=== PATIENT | male | born 1960 | race Caucasian/White ===

== ENCOUNTER 2018-09-16 12:55 | Emergency (ER) | payer MEDICARE, BC, SELFPAY ==
[2018-09-16] VITALS (16 sets, daily range): BP systolic 129–152; BP diastolic 73–97; PULSE 74–80; RESP 10–20; TEMP 36.4; O2SAT 95–97
--- NOTE | 2018-09-16 13:02 | ED.GENADUL_ITS ---
Discharge Plan Disposition Patient Disposition: HOME Condition: Stable Discharge Details Chief Complaint: Chest Pain Clinical Impression: Chronic back pain Reason For Visit: DENNIS Primary Care Provider: None,None ED Provider: Lalo Montoya Home Meds and New Rx's Prescriptions: Continued gabapentin 400 mg Capsule 1,200 mg PO TID RF: 0 clonazepam 1 mg Tablet 1 mg PO HS RF: 0 atenolol 25 mg Tablet 25 mg PO DAILY RF: 0 tramadol 50 mg Tablet 50 mg PO TID RF: 0 acetaminophen 650 mg Tablet Extended Release 1,300 mg PO BID RF: 0 calcium carbonate 600 mg calcium (1,500 mg) Tablet 1 tab PO DAILY RF: 0 methocarbamol 750 mg Tablet 750 mg PO BID RF: 0 ascorbic acid (vitamin C) 500 mg Tablet 500 mg PO DAILY RF: 0 methotrexate sodium 2.5 mg Tablet 15 mg PO DIRECTED RF: 0 trazodone 100 mg Tablet 200 mg PO HS RF: 0 diphenhydramine HCl 25 mg Tablet 50 mg PO PRN PRNRF: 0 docusate sodium 100 mg Capsule 100 mg PO PRN PRNRF: 0 omeprazole 20 mg Capsule,Delayed Release(Dr/Ec) 20 mg PO DAILY RF: 0 vitamin B complex Tablet 1 tab PO DAILY RF: 0 folic acid 1 mg Tablet 1 mg PO DAILY RF: 0 hydroxychloroquine 200 mg Tablet 200 mg PO DAILY RF: 0 multivitamin Capsule 1 tab PO DAILY RF: 0 naproxen 500 mg Tablet 500 mg PO BID RF: 0 cranberry extract [Cranberry Concentrate] 500 mg Capsule RF: 0 cholecalciferol (vitamin D3) 1,000 unit Tablet 1 tab PO DAILY RF: 0 mirabegron 50 mg Tablet Extended Release 24 Hr 50 mg PO DAILY RF: 0 Medical Marijuana PO DAILY RF: 0 Discharge Instructions Instructions: Chronic Back Pain (ED) Additional Instructions: i have placed you on our follow up list to try and get a primary care provider in this area if you have fevers, inability to urinate or new symptoms such as abdominal pain return to the emergency department Stand Alone Forms: Physical Therapy Referral Medical Decision Making 58 yo male on my exam states his chief complaint is lower back pain that he has had for over a year. He is very resistant to give details on his history as he states he doesn't like his old pcp and thinks the records from his office would not tell an accurate description of him. The patient is caox4 with normal speech, no si/hi. States low back pain for over a year and fell from standing a few days ago. He did not have loc. He has pain throughout the lumbar region, no redness or warmth, no saddle anesthesia and intact motor and sensation of the lower extremities. Suspect contusion but will xray to eval for possible fx. He has no findings to suggest cauda equina. He did state to nursing he had chest pain two weeks ago but denies this on my exam. His ekg is nsr, heart score is 2, will send troponin. Has no findings to suggest dvt, no tachcyardia or hypoxia to suggest PE. No tearing back pain and normal vascular exam so doubt dissection pt remains stable, xrays negative on my read. He has no pcp in this area and would like to have pt referral for leg strengthening per pt which he has had in the past which I will provide. I am also going to try and expediate a pcp appt for him for his chronic back pain and other medical problems. HE was advised to return if anything sooner Differential Diagnosis contusion, fracture, strain, chronic low back pain Lab Data Lab results reviewed: Yes I reviewed the patient's lab results. ECG Data Attestation: I personally reviewed and interpreted this ECG (s) as follows: Prior ECG tracings: not available for review Interpretation: sinus rhythm, rate of 77, pr 154, qtc of 364, no ischemic st t wave findings HPI General Mode of arrival: EMS . Date/Time Provider Initiated Documentation: 09/16/18 13:02 . Limitations to Documentation: no limitations . Information obtained by: patient . History of Present Illness 58 year old M presents to the emergency department with the chief complaint of low back pain, described as moderate, Quality is described as aching, and is localized to the back. Patient reports no radiation. Patient started experiencing this year(s) (1) and it has been constant. No relieving factors improve s ymptom(s), No exacerbating factors reported . Patient notes no other symptoms.. Patient did receive the following treatments prior to arrival, none Related Data Home Medications Medication Instructions Recorded Confirmed Medical Marijuana PO DAILY 09/16/18 acetaminophen 1,300 mg PO BID 09/16/18 09/16/18 ascorbic acid (vitamin C) 500 mg PO DAILY 09/16/18 09/16/18 atenolol 25 mg PO DAILY 09/16/18 09/16/18 calcium carbonate 1 tab PO DAILY 09/16/18 09/16/18 cholecalciferol (vitamin D3) 1 tab PO DAILY 09/16/18 09/16/18 clonazepam 1 mg PO HS 09/16/18 09/16/18 cranberry extract [Cranberry 09/16/18 Concentrate] diphenhydramine HCl 50 mg PO PRN PRN 09/16/18 09/16/18 docusate sodium 100 mg PO PRN PRN 09/16/18 09/16/18 folic acid 1 mg PO DAILY 09/16/18 09/16/18 gabapentin 1,200 mg PO TID 09/16/18 09/16/18 hydroxychloroquine 200 mg PO DAILY 09/16/18 09/16/18 methocarbamol 750 mg PO BID 09/16/18 09/16/18 methotrexate sodium 15 mg PO DIRECTED 09/16/18 09/16/18 mirabegron 50 mg PO DAILY 09/16/18 09/16/18 multivitamin 1 tab PO DAILY 09/16/18 09/16/18 naproxen 500 mg PO BID 09/16/18 09/16/18 omeprazole 20 mg PO DAILY 09/16/18 09/16/18 tramadol 50 mg PO TID 09/16/18 09/16/18 trazodone 200 mg PO HS 09/16/18 09/16/18 vitamin B complex 1 tab PO DAILY 09/16/18 09/16/18 Allergies Allergy/AdvReac Type Severity Reaction Status Date / Time No Known Allergies Allergy Unverified 09/16/18 13:08 Review of Systems Review of Systems All systems reviewed & are unremarkable except as noted in HPI and below Constitutional Denies chills, Denies fever(s) and Denies weakness Cardiovascular Denies dyspnea Respiratory Denies dyspnea Gastrointestinal Denies abdominal pain, Denies nausea and Denies vomiting Musculoskeletal Denies joint swelling Neurologic Denies weakness Endocrine Denies cold intolerance and Denies heat intolerance Allergic/Immunologic Denies urticaria PFSH Social History Smoking/Tobacco Use Status: Never Exam Const General: no acute distress Orientation: alert HENMT Head: normal to inspection Ears: external ears normal General nose exam: external nose normal Mouth: moist mucous membranes Eyes General: appearance normal, both eyes and all related structures Neck Neck: normal visual inspection Resp Effort & Inspection: normal respiratory effort and able to speak in complete sentences Cardio Rate: regular rate Back/Spine/Pelvis Back: no CVA tenderness Skin General skin exam: no rashes or lesions noted Neuro General: alert and oriented x3 Extrem General: normal to inspection Psych Mental Status: mental status grossly normal
[2018-09-16 13:24] LABS: Abs Immature Grans 0.01 k/cumm (0.0-0.09); Absolute Basophil Count 0.07 k/cumm (0.0-0.2); Absolute Lymphocyte Count 1.16 k/cumm (1.2-3.4); Absolute Monocyte Count 0.51 k/cumm (0.11-0.7); Absolute Neutrophil Count 4.82 k/cumm (1.2-6.7); Eosinophils % 1.5; HCT 42.3 % (40.0-50.0); HGB 14.7 g/dL (13.5-17.5); Immature Grans % 0.1; Lymphocytes % 17.4; Mean Corp. HGB Concentration 34.8 g/dL (32.0-36.0); Mean Corpuscular Hemoglobin 30.2 pg (27.0-33.0); Mean Corpuscular Volume 86.9 fL (80-95); Mean Platelet Volume 9.2 fL (8.0-11.0); Monocytes % 7.6; Neutrophils % 72.4; Platelet Count 250 x1000/uL (130-400); RBC 4.87 m/cumm (4.50-6.00); RBC Distribution Width 13.7 % (11.8-14.1); White Blood Cell Count 6.67 k/cumm (4.4-10.8)
--- NOTE | 2018-09-16 13:25 | DI.RAD_ITS ---
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 There is an extensive posterior fusion and pedicle screw and rods are noted in place extending from T12 through L3-4. A disc prosthesis is identified at L4-5. There is a narrowed vacuum disc at L5-S1. There is nothing on the present examination to suggest a superimposed acute fracture. Evaluation of the SI joints reveals DJD. No sacral fracture is apparent. An electronic stimulator is positioned over the left posterior sacral region. Incidentally, the patient is apparently status post vasectomy.
[2018-09-16 13:42] LABS: ALT 36 U/L (12-78); AST 37 U/L (15-37); Albumin 3.7 g/dL (3.4-5.0); Alkaline Phosphatase 48 U/L (46-116); Anion Gap 7.3 mmol/L (3-11); BUN 25 mg/dL (7-18); Bilirubin, Total 0.8 mg/dL (0.2-1.0); CO2 30.7 mmol/L (21.0-32.0); CREATININE 0.84 mg/dL (0.70-1.30); Calcium 8.7 mg/dL (8.5-10.1); Chloride 104 mmol/L (98-107); Glucose 126 mg/dL (70-100); NT-proBNP 74 pg/mL; Potassium 3.9 mmol/L (3.5-5.1); Sodium 142 mmol/L (136-145); Total Protein 6.9 g/dL (6.4-8.2)
[2018-09-16 13:45] LABS: Troponin I < 0.02 ng/mL (0.00-0.06)
[2018-09-16] MEDS: Acetaminophen 500 MG TAB 1000 MG PO (13:45)
[2018-09-16 13:59] LABS: INR 1.1 (1.0-3.5); PTT Activated 22.5 sec (21.0-31.4); Prothrombin Time 10.7 sec (9.3-11.0)
--- NOTE | 2018-09-17 10:08 | PDOC.ERCMPRO ---
Care Management Progress Note CM paged by ED for transportation support. CM called Demi at [facility] regarding transport for Sb and his , Erma. CM provided Demographic information and faxed prior-auth for payment direct to [facility] due to Sb being under the age of [age] and having Medicare and BC/BS; no insurance coverage for transport. [facility] responded with transportation information which was directly relayed to Melvina; Career Representative in the ED.
--- NOTE | 2018-09-17 10:10 | CMPROGNOTE_ITS ---
Care Management Progress Note CM paged by ED for transportation support. CM called Demi at [facility] regarding transport for Sb and his , Erma. CM provided Demographic information and faxed prior-auth for payment direct to [facility] due to Sb being under the age of [age] and having Medicare and BC/BS; no insurance coverage for transport. [facility] responded with transportation information which was directly relayed to Melvina; Teradata Architect in the ED.
== END 2018-09-16 17:15 | disposition home or self-care (01) ==
PROVIDERS: Emergency Provider Emergency Medicine; PCP Family Medicine
DX: M54.5 Low back pain (principal)
CPT/HCPCS: 36415; 80053; 93005; 99284; 99285; 72110; 83880; 84484; 85025; 85610; 85730; 93010; 99282

== ENCOUNTER 2018-09-17 13:54 | Emergency (ER) | payer MEDICARE, BC, SELFPAY ==
[2018-09-17 14:00] VITALS: BP 155/98; PULSE 91; RESP 16; TEMP 36.8; O2SAT 96
--- NOTE | 2018-09-17 14:08 | DI.RAD_ITS ---
SYMPTOMS/DIAGNOSIS: PAIN S/P FALL RIGHT HIP: Two views are provided. There is joint space narrowing, and articular sclerosis and mild periarticular hypertrophic spurring, the findings consistent with moderate DJD. There is no evidence of a hip or pelvic fracture.
[2018-09-17] MEDS: Acetaminophen 500 MG TAB 1000 MG PO (14:15)
--- NOTE | 2018-09-17 14:15 | ED.GENADUL_ITS ---
Discharge Plan Disposition Patient Disposition: HOME Condition: Stable Discharge Details Chief Complaint: Orthopedic Clinical Impression: Contusion of right hip Reason For Visit: DENNIS Primary Care Provider: Johnathon Clinton ED Provider: Lalo Montoya Home Meds and New Rx's Prescriptions: No Action gabapentin 400 mg Capsule 1,200 mg PO TID RF: 0 clonazepam 1 mg Tablet 1 mg PO HS RF: 0 atenolol 25 mg Tablet 25 mg PO DAILY RF: 0 tramadol 50 mg Tablet 50 mg PO TID RF: 0 acetaminophen 650 mg Tablet Extended Release 1,300 mg PO BID RF: 0 calcium carbonate 600 mg calcium (1,500 mg) Tablet 1 tab PO DAILY RF: 0 methocarbamol 750 mg Tablet 750 mg PO BID RF: 0 ascorbic acid (vitamin C) 500 mg Tablet 500 mg PO DAILY RF: 0 methotrexate sodium 2.5 mg Tablet 15 mg PO DIRECTED RF: 0 trazodone 100 mg Tablet 200 mg PO HS RF: 0 diphenhydramine HCl 25 mg Tablet 50 mg PO PRN PRNRF: 0 docusate sodium 100 mg Capsule 100 mg PO PRN PRNRF: 0 omeprazole 20 mg Capsule,Delayed Release(Dr/Ec) 20 mg PO DAILY RF: 0 vitamin B complex Tablet 1 tab PO DAILY RF: 0 folic acid 1 mg Tablet 1 mg PO DAILY RF: 0 hydroxychloroquine 200 mg Tablet 200 mg PO DAILY RF: 0 multivitamin Capsule 1 tab PO DAILY RF: 0 naproxen 500 mg Tablet 500 mg PO BID RF: 0 cranberry extract [Cranberry Concentrate] 500 mg Capsule RF: 0 cholecalciferol (vitamin D3) 1,000 unit Tablet 1 tab PO DAILY RF: 0 mirabegron 50 mg Tablet Extended Release 24 Hr 50 mg PO DAILY RF: 0 Medical Marijuana PO DAILY RF: 0 Discharge Instructions Instructions: Contusion in Adults (ED) Medical Decision Making 58 yo male comes in with right hip pain. States he had mechanical fall from standing 3 days ago and landed on right hip, no loc or head trauma. Has chronic back pain for which he was seen yesteerday with negative xrays, comes in today with now right hip pain. Has been walking with his walker and has full rom of the hip with pain, nofevers, redness erythema. Suspect contusion, will xray to eval for fx. Has no findings to suggest septic joint. He is living in a hotel as he is trying to settle in the area and has no services here, will have care management meet with him xray appears negative on my read, care management met with patient is helping pt get set up with community connections and pcp Differential Diagnosis contusion, sprain, strain Imaging Data Radiologic Study: Attestation: I personally reviewed and interpreted this imaging study as follows: Imaging: X-Ray Radiologist's impression: right hip contusion HPI General Mode of arrival: EMS . Date/Time Provider Initiated Documentation: 09/17/18 14:01 . Limitations to Documentation: no limitations . Information obtained by: patient . History of Present Illness 58 year old M presents to the emergency department with the chief complaint of right hip pain, described as moderate, with intensity rated at 5. Quality is described as aching, and is localized to the right and lower extremity. Patient reports no radiation. Patient started experiencing this day(s) (3) and it has been constant. No relieving factors improve symptom(s), No exacerbating factors reported . Patient notes no other symptoms.. Patient did receive the following treatments prior to arrival, none Related Data Home Medications Medication Instructions Recorded Confirmed Medical Marijuana PO DAILY 09/16/18 acetaminophen 1,300 mg PO BID 09/16/18 09/17/18 ascorbic acid (vitamin C) 500 mg PO DAILY 09/16/18 09/17/18 atenolol 25 mg PO DAILY 09/16/18 09/17/18 calcium carbonate 1 tab PO DAILY 09/16/18 09/17/18 cholecalciferol (vitamin D3) 1 tab PO DAILY 09/16/18 09/17/18 clonazepam 1 mg PO HS 09/16/18 09/17/18 cranberry extract [Cranberry 09/16/18 Concentrate] diphenhydramine HCl 50 mg PO PRN PRN 09/16/18 09/17/18 docusate sodium 100 mg PO PRN PRN 09/16/18 09/17/18 folic acid 1 mg PO DAILY 09/16/18 09/17/18 gabapentin 1,200 mg PO TID 09/16/18 09/17/18 hydroxychloroquine 200 mg PO DAILY 09/16/18 09/17/18 methocarbamol 750 mg PO BID 09/16/18 09/17/18 methotrexate sodium 15 mg PO DIRECTED 09/16/18 09/17/18 mirabegron 50 mg PO DAILY 09/16/18 09/17/18 multivitamin 1 tab PO DAILY 09/16/18 09/17/18 naproxen 500 mg PO BID 09/16/18 09/17/18 omeprazole 20 mg PO DAILY 09/16/18 09/17/18 tramadol 50 mg PO TID 09/16/18 09/17/18 trazodone 200 mg PO HS 09/16/18 09/17/18 vitamin B complex 1 tab PO DAILY 09/16/18 09/17/18 Allergies Allergy/AdvReac Type Severity Reaction Status Date / Time No Known Allergies Allergy Unverified 09/16/18 13:08 General Stated Complaint: Orthopedic KIMBERLI: 4 Review of Systems Review of Systems All systems reviewed & are unremarkable except as noted in HPI and below Constitutional Denies chills, Denies fever(s) and Denies weakness Eyes Denies loss of vision ENT Denies change in voice Cardiovascular Denies chest pain and Denies dyspnea Respiratory Denies dyspnea Gastrointestinal Denies abdominal pain, Denies nausea and Denies vomiting Genitourinary Denies dysuria Musculoskeletal Denies joint swelling Integumentary/Breasts Denies rash Neurologic Denies loss of vision and Denies weakness Psychiatric Denies depression Endocrine Denies cold intolerance and Denies heat intolerance Allergic/Immunologic Denies urticaria PFSH Social History Smoking/Tobacco Use Status: Never Exam Const General: no acute distress Orientation: alert HENMT Head: normal to inspection Ears: external ears normal General nose exam: external nose normal Mouth: moist mucous membranes Eyes General: appearance normal, both eyes and all related structures Neck Neck: normal visual inspection Resp Effort & Inspection: normal respiratory effort and able to speak in complete sentences Cardio Rate: regular rate Skin General skin exam: no rashes or lesions noted Neuro General: alert and oriented x3 Extrem General: normal to inspection Psych Mental Status: mental status grossly normal Course Vital Signs Temperature 36.8 C 09/17/18 14:00 Pulse 91 H 09/17/18 14:00 Respiratory Rate 16 09/17/18 14:00 Blood Pressure 155/98 H 09/17/18 14:00 Pulse Oximetry 96 09/17/18 14:00 Temperature 36.8 C 09/17/18 14:00 Temperature Source Skin 09/17/18 14:00 Pulse 91 H 09/17/18 14:00 Respiratory Rate 16 09/17/18 14:00 Respiratory Effort Non-Labored 09/17/18 14:00 Blood Pressure 155/98 H 09/17/18 14:00 Blood Pressure Position Supine 09/17/18 14:00 Pulse Oximetry 96 09/17/18 14:00 Oxygen Delivery Method Room Air 09/17/18 14:00 Oxygen Flow Rate 0 09/17/18 14:00 Pain Level 8 09/17/18 14:00
--- NOTE | 2018-09-18 18:20 | NUR.NOTE ---
Nursing Note: Patient called stating that he was expecting a medi por with his bubble packs from the pharmacy. He stated that he used to get it with his bubble packs of medications. I asked if he had enough medications for the holiday and he stated yes. He still wanted more help and so I put the call to Coleen Perlata, brand development manager phone to leave a message for her to follow up with tomorrow. Sloane Navarrete.
== END 2018-09-17 15:29 | disposition home or self-care (01) ==
PROVIDERS: Emergency Provider Emergency Medicine; PCP Family Medicine
DX: S70.01XA Contusion of right hip, initial encounter (principal); W01.0XXA Fall on same level from slipping, tripping and stumbling without subsequent striking against object, initial encounter
CPT/HCPCS: 99283; 73502; 99282

== ENCOUNTER 2018-11-11 13:37 | Outpatient (REF) | payer MEDICARE, BC, SELFPAY ==
[2018-11-11 16:20] LABS: Bilirubin Negative (Negative); Blood Negative (Negative); Clarity Cloudy; Glucose Negative (Negative); Ketones Negative (Negative); Leukocyte Esterase Negative (Negative); Nitrite Negative (Negative); Specific Gravity 1.025 (1.005-1.025); Urobilinogen 0.2 EU/dL (Up TO 0.2); pH 8.5 (5-8)
[2018-11-11 16:37] LABS: C & S Indicated? Yes; Crystals Many Amorphous HPF (Negative)
== END 2018-11-11 13:57 ==
LOC: LBN 13:37
PROVIDERS: PCP Student in an Organized Health Care Education/Training Program; Visit Provider Urology
DX: R30.0 Dysuria (principal)
CPT/HCPCS: 81003; 81015; 87086

== ENCOUNTER → 2018-12-08 14:21 | Outpatient (BNVA) | payer MEDICARE, BC, SELFPAY | PROVIDERS: PCP Student in an Organized Health Care Education/Training Program; Visit Provider Nurse Practitioner Gerontology | DX: N32.81 Overactive bladder (principal); I10 Essential (primary) hypertension | CPT/HCPCS: 51798; 81003; 99205; 99215 ==

== ENCOUNTER → 2019-01-27 14:43 | Outpatient (BNVA) | payer MEDICARE, BC, SELFPAY | PROVIDERS: PCP Family Medicine; Referring Provider Student in an Organized Health Care Education/Training Program; Visit Provider Nurse Practitioner Gerontology | DX: N39.41 Urge incontinence (principal); N39.43 Post-void dribbling | CPT/HCPCS: 99215 ==

== ENCOUNTER 2019-02-06 17:27 | Emergency (ER) | payer MEDICARE, BC, SELFPAY ==
[2019-02-06] VITALS (39 sets, daily range): BP systolic 98–133; BP diastolic 60–79; PULSE 66–82; RESP 13–27; TEMP 36.6–36.7; O2SAT 93–98
--- NOTE | 2019-02-06 17:38 | DI.RAD_ITS ---
SYMPTOMS/DIAGNOSIS: CHEST PAIN PA AND LATERAL CHEST: There are no prior comparison exams. The heart size is normal. The aorta is not dilated. The lungs appear clear. Hardware is noted at the thoracolumbar junction. IMPRESSION: No acute abnormality.
--- NOTE | 2019-02-06 17:41 | ED.GENADUL_ITS ---
Discharge Plan Disposition Patient Disposition: HOME Condition: Improving Discharge Details Chief Complaint: Chest Pain Clinical Impression: Chest pain, atypical, Chronic anxiety, Gastroesophageal reflux disease Primary Care Provider: Antonio Smith ED Provider: Lopez Forte Home Meds and New Rx's Prescriptions: Continued nabumetone 750 mg tablet 750 mg PO BID RF: 0 mirtazapine [Remeron] 15 mg tablet 15 mg PO DAILY Qty: 30 RF: 2 tramadol 50 mg tablet 50 mg PO TID MDD 3 PRN (Reason: pain) 35 Days Qty: 105 RF: 0 gabapentin 400 mg capsule 1,200 mg PO TID Qty: 270 RF: 0 atenolol 25 mg tablet 25 mg PO DAILY Qty: 30 RF: 0 methotrexate sodium 2.5 mg tablet 20 mg PO QWEEK RF: 0 clonazepam 1 mg Tablet 1 mg PO HS RF: 0 acetaminophen 650 mg Tablet Extended Release 1,300 mg PO BID RF: 0 calcium carbonate 600 mg calcium (1,500 mg) Tablet 1 tab PO DAILY RF: 0 methocarbamol 750 mg Tablet 750 mg PO BID RF: 0 ascorbic acid (vitamin C) 500 mg Tablet 500 mg PO DAILY RF: 0 trazodone 100 mg Tablet 200 mg PO HS RF: 0 docusate sodium 100 mg Capsule 100 mg PO PRN PRNRF: 0 vitamin B complex Tablet 1 tab PO DAILY RF: 0 folic acid 1 mg Tablet 1 mg PO DAILY RF: 0 multivitamin Capsule 1 tab PO DAILY RF: 0 cranberry extract [Cranberry Concentrate] 500 mg Capsule RF: 0 cholecalciferol (vitamin D3) 1,000 unit Tablet 1 tab PO DAILY RF: 0 mirabegron 50 mg Tablet Extended Release 24 Hr 50 mg PO DAILY RF: 0 Medical Marijuana PO DAILY RF: 0 Discharge Instructions Instructions: Chest Pain (ED), Gastroesophageal Reflux Disease (ED), Anxiety (ED) Additional Instructions: Please return to the emergency department for any new or significant worsening of symptoms, worsening chest pain, shortness of breath, or any further concerns. Otherwise continue to take your normally prescribed medications given to you by your primary care provider and follow-up next week with their office for reassessment and further testing as needed. Referrals: Antonio Smith DO [Primary Care Provider] - 1 week (For reassessment and further testing is needed) Discharge Data Discharge Date/Time-TO BE ENTERED AT DEPARTURE: 02/06/19 22:34 Medical Decision Making Patient presenting to the emergency department for chief complaint of chest pressure. Patient reports that this is been going on for the past 4 days. Tomas alfredo has contacted primary care provider whom recommended he comes into the emergency department for evaluation. Patient reports chest pain as dull and achy and denies anything that makes it better or worse. Patient does state previous episode of this 20 years ago where he had a severe anxiety attack that caused this. Patient states he has a lot going on but does not state any specific event that made the start. Patient does not state that activity or rest affects his discomfort. Physical exam is unremarkable and shows normal cardiac and respiratory exam with mild epigastric tenderness. Plan to check labs, EKG, and chest x-ray. Patient is stable in appearance, not diaphoretic, and shows no acute signs of distress. EKG reviewed with Dr. De Leon and shows sinus rhythm with rate of 77, no STEMI, otherwise nondiagnostic. Review of initial labs show normal CBC, nondiagnostic CMP, negative initial troponin. Chest x-ray shows no acute findings. Patient reassessed continues to state some sporadic intermittent sharp substernal pains that come and go. Plan to check second troponin. Given on exam patient does have reproducible discomfort with palpation to the epigastrium plan to give GI cocktail and reassess patient. Review of second troponin shows negative result. Patient reassessed and states full resolution of symptoms beyond continued anxiety. Patient does state he has been under a lot of stress recently in regards to his financial situation and meeting with the office of aging. He reportedly says this is increased his symptoms. On review of patient's primary care records patient did have what appears to be a change in his clonazepam. This may be affecting some of his symptoms but this is unclear. Otherwise at this time I doubt ACS, I feel that anxiety may be a high contributing factor to some of patient's symptoms along with may be some gastritis. Patient I feel is safe for discharge to follow-up with primary care for further evaluation, outpatient cardiac monitoring if symptoms continue, and arrangement of stress test. Close return precautions were discussed with patient and family. After discussion of diagnosis and plan of care patient and family have no further needs, questions, or concerns and states clear understanding to return to the emergency department for any worsening symptoms. HPI General Mode of arrival: EMS . Date/Time Provider Initiated Documentation: 02/06/19 17:28 . Information obtained by: patient and RN notes reviewed . History of Present Illness 58 year old M presents to the emergency department with the chief complaint of Chest pain, described as mild, with intensity rated at 3. Quality is described as aching and dull, and is localized to the chest. Patient started experiencing this day(s) (3) and it has been intermittent. No relieving factors improve symptom(s), No exacerbating factors reported . Patient notes no other symptoms.. Patient did receive the following treatments prior to arrival, none Related Data Home Medications Medication Instructions Recorded Confirmed Medical Marijuana PO DAILY 09/16/18 02/02/19 acetaminophen 1,300 mg PO BID 09/16/18 02/06/19 ascorbic acid (vitamin C) 500 mg PO DAILY 09/16/18 02/06/19 calcium carbonate 1 tab PO DAILY 09/16/18 02/06/19 cholecalciferol (vitamin D3) 1 tab PO DAILY 09/16/18 02/06/19 clonazepam 1 mg PO HS 09/16/18 02/06/19 cranberry extract [Cranberry 09/16/18 02/02/19 Concentrate] docusate sodium 100 mg PO PRN PRN 09/16/18 02/06/19 folic acid 1 mg PO DAILY 09/16/18 02/06/19 methocarbamol 750 mg PO BID 09/16/18 02/06/19 mirabegron 50 mg PO DAILY 09/16/18 02/06/19 multivitamin 1 tab PO DAILY 09/16/18 02/06/19 trazodone 200 mg PO HS 09/16/18 02/06/19 vitamin B complex 1 tab PO DAILY 09/16/18 02/06/19 nabumetone 750 mg tablet 750 mg PO BID 11/19/18 02/06/19 atenolol 25 mg tablet 25 mg PO DAILY #30 tab 01/06/19 02/06/19 gabapentin 400 mg capsule 1,200 mg PO TID #270 cap 01/06/19 02/06/19 mirtazapine 15 mg tablet 15 mg PO DAILY #30 tab 01/19/19 02/06/19 tramadol 50 mg tablet 50 mg PO TID PRN 35 Days #105 tab 02/02/19 02/06/19 MDD 3 methotrexate sodium 2.5 mg tablet 20 mg PO QWEEK tab 02/04/19 02/06/19 Previous Rx's Medication Instructions Recorded atenolol 25 mg tablet 25 mg PO DAILY #30 tab 01/06/19 gabapentin 400 mg capsule 1,200 mg PO TID #270 cap 01/06/19 mirtazapine 15 mg tablet 15 mg PO DAILY #30 tab 01/19/19 tramadol 50 mg tablet 50 mg PO TID PRN 35 Days #105 tab 02/02/19 MDD 3 Allergies Allergy/AdvReac Type Severity Reaction Status Date / Time infliximab Allergy Unknown unknown Verified 02/06/19 17:31 omeprazole [From Prilosec] Allergy Unknown Diarrhea Verified 02/06/19 17:31 tocilizumab Allergy Unknown Rash Verified 02/06/19 17:31 General Stated Complaint: Chest Pain KIMBERLI: 3 Review of Systems Constitutional Denies chills, Denies fever(s) and Denies malaise Cardiovascular Reports as per HPI, Reports chest pain, Denies chest pain with activity, Denies irregular heart rhythm, Reports palpitations and Denies dyspnea Respiratory Denies cough, Denies hemoptysis and Denies dyspnea Gastrointestinal Denies abdominal pain, Denies nausea and Denies vomiting Psychiatric Reports anxiety Endocrine Reports palpitations PFSH Medical History Iron deficiency anemia (Acute) GERD (gastroesophageal reflux disease) (Chronic) Hypertension (Chronic) Surgical History History of back surgery (Acute) Hx of foot surgery (Acute) Hx of hand surgery (Acute ~2013) Cataract (Chronic ~1960) Family History Mother Diabetes Father Dementia Social History Smoking/Tobacco Use Status: Former Tobacco Use Alcohol Intake: never Drug use: Never Substance use type: marijuana and other Details: Medical Marijuana Communication Needs: Blind and Corrective Lenses Current gender identity: male What is your relationship status?: Panel score (0-1 are the most socially isolated patients): 1 Seatbelt use: always Drive intox or ride w/intox mixer driver: No Working smoke detector in home: Yes Carbon monox detector in home: Yes Do you feel safe at home: Yes Do you feel safe in your relationship?: Yes Exam Const General: cooperative, healthy appearing, comfortable, no acute distress, not diaphoretic and not ill appearing Nutritional Appearance: average body habitus Orientation: alert, awake and oriented x3 Limitations: mental status not altered Neck Neck: normal visual inspection, full ROM, trachea midline, supple and no anterior neck swelling Carotids: normal carotid upstroke and no bruits Chest Chest: normal inspection of the chest Resp Effort & Inspection: normal respiratory effort and able to speak in complete sentences Auscultation: clear to auscultation bilaterally Cardio Jugular venous pressure: no JVD Palpation: normal PMI Rate: regular rate Rhythm: regular rhythm Heart Sounds: S1 normal, S2 normal, no click, no gallops, no murmurs and no rubs Bruits: no abdominal aortic bruits and no carotid bruits Pulses: radial pulses present bilaterally 2+ GI Inspection: normal to inspection Palpation: soft, no aortic enlargement, no pulsatile masses and tender in the epigastrum Auscultation: normal bowel sounds Skin General skin exam: no rashes or lesions noted Neuro General: alert, awake, oriented x3, tone normal and moves all extremities Extrem General: no pedal edema Course Vital Signs Temperature 36.7 C 02/06/19 17:27 Pulse 78 02/06/19 17:27 Respiratory Rate 20 02/06/19 17:27 Blood Pressure 133/79 02/06/19 17:27 Pulse Oximetry 96 02/06/19 17:27 Temperature 36.7 C 02/06/19 17:27 Temperature Source Temporal Artery Scan 02/06/19 17:27 Pulse 78 02/06/19 17:27 Respiratory Rate 20 02/06/19 17:27 Respiratory Effort Non-Labored 02/06/19 17:27 Blood Pressure 133/79 02/06/19 17:27 Pulse Oximetry 96 02/06/19 17:27 Oxygen Delivery Method Room Air 02/06/19 17:27 Oxygen Flow Rate 0 02/06/19 17:27 Pain Level 3 02/06/19 17:27
[2019-02-06 17:52] LABS: Abs Immature Grans 0.01 k/cumm (0.0-0.09); Absolute Basophil Count 0.06 k/cumm (0.0-0.2); Absolute Eosinophil Count 0.24 k/cumm (0.0-0.7); Absolute Lymphocyte Count 1.78 k/cumm (1.2-3.4); Absolute Monocyte Count 0.53 k/cumm (0.11-0.7); Absolute Neutrophil Count 5.02 k/cumm (1.2-6.7); Basophils % 0.8; Eosinophils % 3.1; HCT 42.4 % (40.0-50.0); HGB 14.4 g/dL (13.5-17.5); Immature Grans % 0.1; Lymphocytes % 23.3; Mean Corpuscular Hemoglobin 29.6 pg (27.0-33.0); Mean Corpuscular Volume 87.2 fL (80-95); Mean Platelet Volume 8.8 fL (8.0-11.0); Monocytes % 6.9; Neutrophils % 65.8; Platelet Count 234 x1000/uL (130-400); RBC 4.86 m/cumm (4.50-6.00); RBC Distribution Width 13.6 % (11.8-14.1); White Blood Cell Count 7.64 k/cumm (4.4-10.8)
[2019-02-06] MEDS: LORazepam 0.5 MG TAB PO (17:54)
[2019-02-06 18:06] LABS: ALT 53 U/L (12-78); AST 38 U/L (15-37); Albumin 3.5 g/dL (3.4-5.0); Alkaline Phosphatase 46 U/L (46-116); Anion Gap 6.9 mmol/L (3-11); BUN 17 mg/dL (7-18); Bilirubin, Total 0.7 mg/dL (0.2-1.0); CO2 29.1 mmol/L (21.0-32.0); CREATININE 0.77 mg/dL (0.70-1.30); Calcium 8.5 mg/dL (8.5-10.1); Chloride 103 mmol/L (98-107); Glucose 121 mg/dL (70-100); Magnesium 1.9 mg/dL (1.8-2.4); Potassium 3.6 mmol/L (3.5-5.1); Sodium 139 mmol/L (136-145); Total Protein 6.7 g/dL (6.4-8.2)
[2019-02-06 18:07] LABS: Troponin I < 0.02 ng/mL (0.00-0.06)
--- NOTE | 2019-02-06 18:19 | DI.VRAD_ITS ---
EXAM: XR Chest, 2 Views EXAM DATE/TIME: 02/06/2019 5:40 PM CLINICAL HISTORY: 58 years old, male; Prior surgery; Patient HX: Chest pain; Per PT: Feel like jolts in the middle of chest TECHNIQUE: Imaging protocol: XR of the chest, 2 views. COMPARISON: No relevant prior studies available. FINDINGS: Lungs: Unremarkable. No consolidation. Pleural space: Unremarkable. No pleural effusion. No pneumothorax. Heart/Mediastinum: Unremarkable. No cardiomegaly. Bones/joints: Partially viewed hardware in the lumbar spine. Spine is degenerative. IMPRESSION: No acute findings. Dictated and Authenticated by: Christian Amaya MD. Ordering:VALE Marroquin MD
[2019-02-06 18:21] LABS: D-Dimer 470 ng/mlFEU (<500)
[2019-02-06 21:24] LABS: Troponin I < 0.02 ng/mL (0.00-0.06)
--- NOTE | 2019-02-06 22:39 | NUR.NOTE ---
Pt given a sandwich
--- NOTE | 2019-02-09 08:50 | CMPROGNOTE_ITS ---
Care Management Progress Note 02/09-Dr. De Leon requested assistance with a PCP (Luis) f/u this week for atypical chest pain/anxiety. Referral faxed to [facility] this am.
== END 2019-02-06 22:34 | disposition home or self-care (01) ==
PROVIDERS: Emergency Provider Nurse Practitioner Family; PCP Family Medicine
DX: R07.89 Other chest pain (principal); F41.9 Anxiety disorder, unspecified; K21.9 Gastro-esophageal reflux disease without esophagitis; R10.13 Epigastric pain; I10 Essential (primary) hypertension
CPT/HCPCS: 36415; 80053; 93005; 99285; 71046; 83735; 84484; 85025; 85379; 93010; 99284

== ENCOUNTER 2019-05-15 11:21 | Outpatient (REF) | payer MEDICARE, BC, SELFPAY | END 2019-05-15 11:41 | LOC: LBN 11:21 | PROVIDERS: PCP Family Medicine; Visit Provider Nurse Practitioner Gerontology | DX: R32 Unspecified urinary incontinence (principal); R35.0 Frequency of micturition | CPT/HCPCS: 87086 ==

== ENCOUNTER → 2019-06-02 14:24 | Outpatient (BNVA) | payer MEDICARE, BC, SELFPAY | PROVIDERS: PCP Family Medicine; Visit Provider Urology | DX: N32.81 Overactive bladder (principal); R32 Unspecified urinary incontinence; I10 Essential (primary) hypertension | CPT/HCPCS: 36415; 80061; 81003; 99214 ==

== ENCOUNTER 2019-06-02 16:16 | Outpatient (CLI) | payer MEDICARE, BC, SELFPAY ==
[2019-06-02 17:28] LABS: Calculated LDL 118 mg/dL; Cholesterol 178 mg/dL (50-200); HDL Cholesterol 37 mg/dL (40-60); Triglyceride 117 mg/dL (30-150)
== END 2019-06-02 16:36 ==
PROVIDERS: PCP Family Medicine; Visit Provider Family Medicine
DX: Z13.6 Encounter for screening for cardiovascular disorders (principal)
CPT/HCPCS: 36415; 80061

== ENCOUNTER 2019-10-27 14:37 | Outpatient (REF) | payer MEDICARE, BC, SELFPAY ==
[2019-10-27 15:17] LABS: Bilirubin Negative (Negative); Blood Negative (Negative); Clarity Cloudy (Clear); Glucose Negative (Negative); Ketones Trace mg/dL (Negative); Leukocyte Esterase Negative (Negative); Nitrite Negative (Negative); Specific Gravity 1.025 (1.005-1.025); Urobilinogen 0.2 EU/dL (Up TO 0.2)
== END 2019-10-27 14:57 ==
LOC: LBN 14:37
PROVIDERS: Urology; PCP Family Medicine; Visit Provider Family Medicine
DX: R30.0 Dysuria (principal)
CPT/HCPCS: 81003; 87086

== ENCOUNTER 2019-11-10 18:18 | Outpatient (REF) | payer MEDICARE, BC, SELFPAY ==
[2019-11-10 19:21] LABS: ALT 28 U/L (16-63); AST 28 U/L (15-37); Albumin 3.8 g/dL (3.4-5.0); Alkaline Phosphatase 46 U/L (46-116); Anion Gap 8.3 mmol/L (3-11); BUN 18 mg/dL (7-18); Bilirubin, Total 0.6 mg/dL (0.2-1.0); CO2 27.7 mmol/L (21.0-32.0); CREATININE 0.82 mg/dL (0.70-1.30); Calcium 8.7 mg/dL (8.5-10.1); Chloride 105 mmol/L (98-107); Glucose 112 mg/dL (74-106); Potassium 4.2 mmol/L (3.5-5.1); Sodium 141 mmol/L (136-145); Total Protein 6.5 g/dL (6.4-8.2)
[2019-11-10 19:40] LABS: Abs Immature Grans 0.01 k/cumm (0.0-0.09); Absolute Basophil Count 0.04 k/cumm (0.0-0.2); Absolute Eosinophil Count 0.15 k/cumm (0.0-0.7); Absolute Lymphocyte Count 1.42 k/cumm (1.2-3.4); Absolute Monocyte Count 0.54 k/cumm (0.11-0.7); Absolute Neutrophil Count 2.84 k/cumm (1.2-6.7); Basophils % 0.8; HCT 42.3 % (40.0-50.0); HGB 14.2 g/dL (13.5-17.5); Immature Grans % 0.2 %; Lymphocytes % 28.4; Mean Corp. HGB Concentration 33.6 g/dL (32.0-36.0); Mean Corpuscular Hemoglobin 29.5 pg (27.0-33.0); Mean Corpuscular Volume 87.8 fL (80-95); Monocytes % 10.8; Neutrophils % 56.8; Platelet Count 299 x1000/uL (130-400); RBC 4.82 m/cumm (4.50-6.00); RBC Distribution Width 13.9 % (11.8-14.1)
== END 2019-11-10 18:38 ==
LOC: LBN 18:18
PROVIDERS: PCP Family Medicine; Visit Provider Family Medicine
DX: Z79.899 Other long term (current) drug therapy (principal); G89.29 Other chronic pain
CPT/HCPCS: 80053; 85025